=== PATIENT | female | born 1935 | race Caucasian/White ===

== ENCOUNTER 2018-09-30 13:11 | Inpatient (IN) | payer MEDICARE, BC ==
[~2018-09-30] VITALS: Ht 160 cm; Wt 79.5 kg
[2018-09-30] MEDS ORDERED: SODIUM CHLORIDE FLUSH 10ML SYR IVF ONE (14:00)
[2018-09-30 14:17] LABS: BASOPHILS # (AUTO) 0.02 x10^3/uL (0-0.1); BASOPHILS % (AUTO) 0 % (0-1); EOSINOPHILS % (AUTO) 0 % (1-7); LYMPHOCYTES # (AUTO) 0.76 x10^3/uL (1-3.4); LYMPHOCYTES % (AUTO) 9 % (22-44); MD NO; MEAN CORPUSCULAR HEMOGLOBIN 27.6 pg (27.0-34.8); MEAN CORPUSCULAR VOLUME 83.6 fL (80-100); MEAN PLATELET VOLUME 8.4 fL (7.4-10.4); MONOCYTES # (AUTO) 0.44 x10^3/uL (0.2-0.8); MONOCYTES % (AUTO) 5 % (2-9); NEUTROPHILS # (AUTO) 7.68 x10^3/uL (1.8-6.8); NEUTROPHILS % (AUTO) 86 % (42-75); PLATELET COUNT 237 x10^3/uL (130-400); RED BLOOD COUNT 4.26 x10^6/uL (3.82-5.3); RED CELL DISTRIBUTION WIDTH 15.1 % (9.6-15.2)
[2018-09-30 14:24] LABS: ALANINE AMINOTRANSFERASE 31 U/L (12-78); ALBUMIN 3.7 g/dL (3.4-5.0); ANION GAP 11 mmol/L (5-15); CHLORIDE 103 mmol/L (98-107)
--- NOTE | 2018-09-30 14:33 | NUR ---
Pt transported on [facility] to [facility]. [facility].
[2018-09-30 14:35] LABS: ALKALINE PHOSPHATASE 69 U/L (45-117); BILIRUBIN,TOTAL 0.2 mg/dL (0.2-1.0); THYROID STIMULATING HORMONE 0.515 mIU/L (0.358-3.740)
--- NOTE | 2018-09-30 15:09 | NUR ---
Pt returned to room from [facility] on [facility]. Collected urine sample and sent to lab. PRASANNA. No needs expressed. Call light within reach. Pt connected to bus driver/monitor, NIBP, and continous pulse ox. Both bed rails up with seizure precautions in place. Daughter is at bedside.
[2018-09-30 15:17] LABS: MICROSCOPIC AUTO
[2018-09-30 15:22] LABS: CULTURE INDICATED? YES
[2018-09-30] MEDS ORDERED: DEXTROSE 4 GM TAB.CHEW PO PRN (16:00)
[2018-09-30] MEDS: INSULIN LISPRO 100 UNITS/ML, PEN SQ-INSULIN SCH ×2 (16:00→22:17)
[2018-09-30] MEDS ORDERED: LABETALOL 5MG/ML, 20ML IVPush PRN (16:00)
[2018-09-30] MEDS ORDERED: POLYETHYLENE GLYCOL 17 GM PACKET PO PRN (16:00)
[2018-09-30] MEDS ORDERED: DOCUSATE 100 MG CAPSULE PO PRN (16:00)
[2018-09-30] MEDS ORDERED: LORazepam 2 MG/ML, 1ML IVPush PRN (16:00)
[2018-09-30] MEDS ORDERED: LEVOFLOXACIN/PMX 750MG/150ML 150 ML IV SCH (16:00)
[2018-09-30] MEDS ORDERED: DEXTROSE 50%, 50ML SYRINGE IVPush PRN (16:00)
[2018-09-30] MEDS ORDERED: hydrALAzine 20 MG/ML, 1ML IVPush PRN (16:00)
[2018-09-30] MEDS ORDERED: BISACODYL 10 MG SUPP PR PRN (16:00)
[2018-09-30] MEDS ORDERED: ACETAMINOPHEN 325 MG TABLET PO PRN (16:00)
[2018-09-30] MEDS ORDERED: GLUCAGON 1 MG IM PRN (16:00)
[2018-09-30] MEDS ORDERED: POTASSIUM CHLORIDE 40 MEQ in SODIUM CHLORIDE 0.9% 500 ML IV ONE (16:00)
[2018-09-30] MEDS ORDERED: POTASSIUM CL ER PO (16:06)
[2018-09-30] MEDS ORDERED: ACET-1757 PO (16:06)
[2018-09-30] MEDS ORDERED: LEVO75TA5 PO (16:06)
[2018-09-30] MEDS ORDERED: METF500T17 PO (16:06)
[2018-09-30] MEDS ORDERED: [UNRECOGNIZED DRUG - OTHER] PO (16:06)
[2018-09-30] MEDS ORDERED: [UNRECOGNIZED DRUG - CODE] PO (16:06)
--- NOTE | 2018-09-30 16:09 | NUR ---
Pt ready to transfer to floor from ED. Provided report to MARITA Huber. Answered all questions. Pt to transfer to room 485.
--- NOTE | 2018-09-30 16:24 | NUR ---
Pt cleaned up from incontinece of bowel and provided new absorbant pad. Pt appreciative. Pt transfered from ED to floor and left with all personal belongings. Pt's daughter followed alongside pt on transfer and left with all personal belongings.
[2018-09-30 16:39] LABS: HEMOGLOBIN A1C 6.2 % (4.2-6.3)
[2018-09-30 16:43] VITALS: BP 122/67
[2018-09-30 16:44] LABS: FREE T4 (FREE THYROXINE) 1.64 ng/dL (0.76-1.46); TROPONIN I < 0.015 ng/mL (0.000-0.045)
[2018-09-30 16:50] LABS: THYROID STIMULATING HORMONE 0.293 mIU/L (0.358-3.740)
[2018-09-30] MEDS: HEPARIN 5,000 UNITS/ML, 1ML SQ SCH (17:57)
[2018-09-30] MEDS ORDERED: GADOBUTROL 7.5 MMOL/7.5 ML PFS ONE (19:07)
[2018-09-30 20:23] VITALS: BP 118/61
[2018-09-30 20:24] VITALS: BP 108/69
[2018-09-30 20:25] VITALS: BP 114/64
[2018-09-30] MEDS: SODIUM CHLORIDE FLUSH 10ML SYR IVF SCH (22:17)
[2018-09-30 22:19] LABS: TROPONIN I < 0.015 ng/mL (0.000-0.045)
[2018-09-30 23:55] LABS: CLOSTRIDIUM DIFFICILE ANTIGEN NEGATIVE; CLOSTRIDIUM DIFFICILE TOXIN NEGATIVE (Negative)
[2018-10-01] MEDS: SODIUM CHLORIDE 0.9% 1,000 ML IV SCH ×2 (01:40→12:29)
[2018-10-01] MEDS: HEPARIN 5,000 UNITS/ML, 1ML SQ SCH ×3 (01:41→17:58)
[2018-10-01 04:50] VITALS: BP 122/75
[2018-10-01] MEDS: LEVOTHYROXINE 75 MCG TABLET PO SCH (05:00)
[2018-10-01 05:49] LABS: ANION GAP 7 mmol/L (5-15); CALCIUM 8.5 mg/dL (8.5-10.1); CHLORIDE 107 mmol/L (98-107)
[2018-10-01 05:54] LABS: ALANINE AMINOTRANSFERASE 24 U/L (12-78); ALKALINE PHOSPHATASE 53 U/L (45-117); BILIRUBIN,TOTAL 0.1 mg/dL (0.2-1.0); CHOL/HDL RATIO 3.2; CHOLESTEROL, TOTAL 116 mg/dL (140-239); HDL CHOL % 31 % (28-40); HDL CHOLESTEROL (DIRECT) 36 mg/dL (40-60); LDL CHOLESTEROL,CALCULATED 62 mg/dL (54-169); LDL/HDL RATIO 1.7 (0.5-3.0); TOTAL PROTEIN 6.6 g/dL (6.4-8.2); TRIGLYCERIDES 90 mg/dL (50-200); VLDL CHOLESTEROL 18 mg/dL (0-25)
[2018-10-01 06:05] LABS: BASOPHILS % (AUTO) 0 % (0-1); EOSINOPHILS % (AUTO) 0 % (1-7); LYMPHOCYTES # (AUTO) 0.55 x10^3/uL (1-3.4); LYMPHOCYTES % (AUTO) 11 % (22-44); MD NO; MEAN CORPUSCULAR HEMOGLOBIN 27.3 pg (27.0-34.8); MEAN CORPUSCULAR HGB CONC 33.1 g/dL (32.4-35.8); MEAN CORPUSCULAR VOLUME 82.3 fL (80-100); MEAN PLATELET VOLUME 8.2 fL (7.4-10.4); MONOCYTES # (AUTO) 0.31 x10^3/uL (0.2-0.8); MONOCYTES % (AUTO) 6 % (2-9); NEUTROPHILS # (AUTO) 4.01 x10^3/uL (1.8-6.8); NEUTROPHILS % (AUTO) 82 % (42-75); PLATELET COUNT 193 x10^3/uL (130-400); RED BLOOD COUNT 3.66 x10^6/uL (3.82-5.3); RED CELL DISTRIBUTION WIDTH 15.2 % (9.6-15.2)
[2018-10-01] MEDS: INSULIN LISPRO 100 UNITS/ML, PEN SQ-INSULIN SCH ×4 (07:34→20:09)
[2018-10-01 07:59] VITALS: BP 135/69
[2018-10-01] MEDS ORDERED: POTASSIUM CHLORIDE 20 MEQ TAB.ER.PRT PO ONE (08:30)
[2018-10-01] MEDS: CEFTRIAXONE PMX 2GM/50ML 50 ML IV SCH (10:11)
[2018-10-01] MEDS: SODIUM CHLORIDE FLUSH 10ML SYR IVF SCH ×2 (10:12→20:10)
[2018-10-01 13:07] VITALS: BP 115/63
[2018-10-01 20:25] VITALS: BP 102/39
[2018-10-01 20:30] VITALS: BP 108/55
[2018-10-01 20:35] VITALS: BP 106/56
[2018-10-02] MEDS: SODIUM CHLORIDE 0.9% 1,000 ML IV SCH ×2 (00:38→12:06)
[2018-10-02] MEDS: HEPARIN 5,000 UNITS/ML, 1ML SQ SCH ×2 (02:18→12:06)
[2018-10-02 02:24] VITALS: BP 103/47
[2018-10-02] MEDS: LEVOTHYROXINE 75 MCG TABLET PO SCH (05:12)
[2018-10-02 05:53] LABS: ANION GAP 7 mmol/L (5-15); CALCIUM 7.7 mg/dL (8.5-10.1); CHLORIDE 109 mmol/L (98-107)
[2018-10-02 05:55] LABS: CREATININE 0.61 mg/dL (0.55-1.02)
[2018-10-02 08:00] VITALS: BP 100/47
[2018-10-02] MEDS: INSULIN LISPRO 100 UNITS/ML, PEN SQ-INSULIN SCH ×2 (08:12→12:09)
[2018-10-02 08:27] VITALS: BP 104/66
[2018-10-02] MEDS: CEFTRIAXONE PMX 2GM/50ML 50 ML IV SCH (12:05)
[2018-10-02] MEDS: SODIUM CHLORIDE FLUSH 10ML SYR IVF SCH (12:06)
[2018-10-02 14:36] VITALS: BP 114/62
[2018-10-02] MEDS ORDERED: CEFD300C37 PO (15:08)
== END 2018-10-02 16:20 | disposition home or self-care (01) | DRG 74 ==
LOC: ED 14:03 → EDIP 15:34 → 4EST 16:32
PROVIDERS: ADMIT Internal Medicine; ATTEND Internal Medicine
DX: G90.8 Other disorders of autonomic nervous system (principal); N39.0 Urinary tract infection, site not specified; E03.9 Hypothyroidism, unspecified; E87.6 Hypokalemia; F02.80 Dementia in other diseases classified elsewhere, unspecified severity, without behavioral disturbance, psychotic disturbance, mood disturbance, and anxiety; G30.9 Alzheimer's disease, unspecified; R32 Unspecified urinary incontinence; Z66 Do not resuscitate; R56.9 Unspecified convulsions; E11.9 Type 2 diabetes mellitus without complications; Z88.0 Allergy status to penicillin; Z88.8 Allergy status to other drugs, medicaments and biological substances; Z88.6 Allergy status to analgesic agent; Z88.1 Allergy status to other antibiotic agents; Z91.041 Radiographic dye allergy status
CPT/HCPCS: 36415; 70450; 70553; 71045; 80048; 80053; 80061; 81001; 82962; 83036; 83690; 83735; 84100; 84439; 84443; 84484; 85025; 87040; 87077; 87086; 87186; 87324; 93005; 93306; 93880; 99285; A9585; G0378; J0696; J1644; J1956; J3480; J1815; J7030; J7040